=== PATIENT | male | born 1960 | race Caucasian/White ===

== ENCOUNTER 2024-12-17 15:50 | Emergency (ER) | payer SELFPAY ==
[~2024-12-17] VITALS: Ht 185.4 cm; Wt 86.2 kg
[2024-12-17] MEDS ORDERED: METF-440 PO (17:52)
[2024-12-17] MEDS ORDERED: GLIP10TA11 PO (17:52)
[2024-12-17 18:02] VITALS: BP 142/84; TEMP 98.8; O2SAT 98
== END 2024-12-17 18:02 | disposition home or self-care (01) ==
LOC: ER 15:50
DX: E11.9 Type 2 diabetes mellitus without complications (principal); Z76.0 Encounter for issue of repeat prescription; Z79.84 Long term (current) use of oral hypoglycemic drugs
CPT/HCPCS: A4606; A4663